=== PATIENT | female | born 1995 | race African-American/Black ===

== ENCOUNTER 2022-01-08 10:42 | Emergency (ER) | payer OTHER, SELFPAY ==
[2022-01-08 10:45] VITALS: BP 122/72; PULSE 88; RESP 15; TEMP 36.2; O2SAT 96; BMI 32.1
[2022-01-08 13:23] VITALS: BP 133/84; PULSE 91; O2SAT 99
[2022-01-08 13:30] VITALS: BP 129/88; PULSE 81; O2SAT 100
--- NOTE | 2022-01-08 13:31 | ED_ITS ---
HPI - Skin/Abscess/Foreign Bdy <ROX Mack - Last Filed: 01/08/22 14:37> General Chief complaint: Skin/Abscess/Foreign Body Stated complaint: Mass on rib, possible cyst Time Seen by Provider: 01/08/22 13:31 Source: patient Mode of arrival: Ambulatory Limitations: no limitations History of Present Illness HPI narrative: This is a 26-year-old female who presents to the emergency department from the [facility] for an abscess on her left buttock that she noticed 5 days ago. She states that she has had nausea, felt unwell, and had a headache but denies any known fever, vomiting, or diarrhea. She denies any history of abscesses in the past, states she thought it was a pimple at 1st, and it got big fast, now with warmth, redness and pain. She denies any history of abnormal dermatologic conditions. She denies any diabetes history. States her last tetanus was within the last 3 months. Related Data Previous Rx's Medication Instructions Recorded sulfamethoxazole 800 1 tab PO BID 5 Days #10 tab 01/08/22 mg-trimethoprim 160 mg tablet (Bactrim DS) Allergies Allergy/AdvReac Type Severity Reaction Status Date / Time No Known Drug Allergies Allergy Verified 01/08/22 10:45 Review of Systems <ROX Mack - Last Filed: 01/08/22 14:37> Review of Systems Narrative: General: denies fever, chills, malaise, sweats, fatigue Head/Neck: denies headache, neck pain, dizziness Eyes: denies visual changes, eye pain Cardio: denies chest pain, palpitations, edema Respiratory: denies dyspnea, cough, orthopnea GI: denies abdominal pain, nausea, vomiting, or diarrhea : denies dysuria, hematuria, urinary retention, frequency or incontinence MSK: denies joint pain, muscle weakness Skin: denies rash, itching, complains abscess on left buttock Neuro: denies numbness, tingling Patient History <ROX Mack - Last Filed: 01/08/22 14:37> Social History Smoking Status: Current every day smoker Smoking Status: Current every day smoker tobacco type: vaping alcohol intake frequency: holidays/special occasions only Substance Use Type: does not use Exam <ROX Mack - Last Filed: 01/08/22 14:37> Narrative Exam Narrative: Independently reviewed vitals signs and nursing notes. General: cooperative, comfortable, in no acute distress, well developed and well groomed Head: atraumatic, symmetrical facial expressions Eyes: pupils equal round and reactive, EOMI, conjunctiva normal Nose: nares patent, no rhinorrhea Mouth/Throat: uvula midline, moist mucus membranes Cardiovascular: regular rate and rhythm, no peripheral edema, warm extremities Respiratory: normal effort, able to speak in complete sentences, no audible wheezing, stridor, or rales. No retractions or tachypnea. MSK: moves all extremities, ambulatory w/steady gait, neurovascularly intact, no weakness Skin: brisk capillary refill, no rash, 2 cm abscess on left medial buttock with surrounding erythema, tenderness to palpation, + fluctuance Neuro: normal speech and cognition, A&O x3, normal tone Psych: mental status is grossly normal, congruent mood, normal affect, pleasant and cooperative Initial Vital Signs Initial Vital Signs: Vital Signs Temperature 97.1 F L 01/08/22 10:45 Pulse Rate 88 01/08/22 10:45 Respiratory Rate 15 01/08/22 10:45 Blood Pressure 122/72 01/08/22 10:45 Pulse Oximetry 96 01/08/22 10:45 <Autumn Guzman DO - Last Filed: 01/11/22 23:25> Initial Vital Signs Initial Vital Signs: Vital Signs Temperature 97.1 F L 01/08/22 10:45 Pulse Rate 88 01/08/22 10:45 Respiratory Rate 15 01/08/22 10:45 Blood Pressure 122/72 01/08/22 10:45 Pulse Oximetry 96 01/08/22 10:45 Procedures <ROX Mack - Last Filed: 01/08/22 14:37> Abscess I/D I&D #1: Site: other (Left buttock) Side (if applicable): left Sedation/analgesia: other (Toradol and Tylenol) Local Anesthetic: lidocaine 1% and with bicarb Amount of anesthesia used (mL): 2 Technique: incised with #11 blade Amount of fluid expressed (mL): 10 Irrigation: Yes Packing used?: none Complications: other (None) Course <ROX Mack - Last Filed: 01/08/22 14:37> Orders Ordered: Discontinued Medications Acetaminophen (Acetaminophen 325 Mg Tablet) 975 mg PO NOW ONE Stop: 01/08/22 13:37 Last Admin: 01/08/22 13:44 Dose: 975 mg Documented by: SHO Ketorolac Tromethamine (Ketorolac 30 Mg/Ml Vial) 15 mg IM NOW ONE Stop: 01/08/22 13:37 Last Admin: 01/08/22 13:44 Dose: 15 mg Documented by: SHO Lidocaine/Sodium Bicarbonate (Lido 1%/Sod Bicarb 8.4% (10ml) 10 Ml Syringe) 10 ml INJ NOW ONE Stop: 01/08/22 13:37 Last Admin: 01/08/22 13:44 Dose: 10 ml Documented by: SHO Ondansetron HCl (Ondansetron 4 Mg Odt) 4 mg SL NOW ONE Stop: 01/08/22 13:38 Last Admin: 01/08/22 13:44 Dose: 4 mg Documented by: SHO Vital Signs Vital signs: Vital Signs - 8 hr 01/08/22 10:45 01/08/22 13:23 01/08/22 13:30 Temperature 97.1 F L Pulse Rate 88 91 H 81 Respiratory Rate 15 Blood Pressure 122/72 133/84 129/88 Pulse Oximetry 96 99 100 01/08/22 14:00 Temperature Pulse Rate 96 H Respiratory Rate Blood Pressure 129/84 Pulse Oximetry 100 <Autumn Guzman DO - Last Filed: 01/11/22 23:25> Orders Ordered: Discontinued Medications Acetaminophen (Acetaminophen 325 Mg Tablet) 975 mg PO NOW ONE Stop: 01/08/22 13:37 Last Admin: 01/08/22 13:44 Dose: 975 mg Documented by: SHO Ketorolac Tromethamine (Ketorolac 30 Mg/Ml Vial) 15 mg IM NOW ONE Stop: 01/08/22 13:37 Last Admin: 01/08/22 13:44 Dose: 15 mg Documented by: SHO Lidocaine/Sodium Bicarbonate (Lido 1%/Sod Bicarb 8.4% (10ml) 10 Ml Syringe) 10 ml INJ NOW ONE Stop: 01/08/22 13:37 Last Admin: 01/08/22 13:44 Dose: 10 ml Documented by: SHO Ondansetron HCl (Ondansetron 4 Mg Odt) 4 mg SL NOW ONE Stop: 01/08/22 13:38 Last Admin: 01/08/22 13:44 Dose: 4 mg Documented by: SHO Vital Signs Vital signs: Vital Signs - 8 hr 01/08/22 10:45 01/08/22 13:23 01/08/22 13:30 Temperature 97.1 F L Pulse Rate 88 91 H 81 Respiratory Rate 15 Blood Pressure 122/72 133/84 129/88 Pulse Oximetry 96 99 100 01/08/22 14:00 Temperature Pulse Rate 96 H Respiratory Rate Blood Pressure 129/84 Pulse Oximetry 100 MDM - Skin/Abscess/Foreign Bdy <ROX Mack - Last Filed: 01/08/22 14:37> MDM Narrative Medical decision making narrative: This is a 26-year-old female, active who presents to the emergency department complaining of abscess on her buttock which she noticed 5 days ago. She states it started as a pimple, then became larger, now with redness, warmth, and more tenderness. This is incised and drained for approximately 10 mL purulence drainage, wound culture obtained. Recommended patient continue warm compresses, shower as usual, allow to drain. She was given a prescription for antibiotics if she develops any worsening redness, warmth, heat or if her wound starts to reaccumulate. No packing was used, cavity was only approximately 0.5 cm deep. Patient was given strict return precautions, instructed to return to the emergency department for fever, worsening pain, systemic illness, or any other concerns. Patient is appropriate and amenable to discharge home. Vital signs are stable on repeat examination is unremarkable. Patient has been informed of results. Patient has been given strict return to ER precautions for any new or worsening symptoms. Patient understands to follow up closely with outpatient providers as instructed. Patient understands plan and agrees to discharge home. All questions and concerns answered at this time. Discharge Plan Departure Patient Disposition: Home Clinical Impression: Abscess Instructions: DI for Skin Abscess Activity Restrictions/Additional Instructions: *You have been diagnosed with an abscess on your left buttock, this was drained, we will call you if your wound culture grows out something you should take the antibiotic for or if it needs a different antibiotic. [place] as needed for any worsening of this, there is always a chance again reaccumulate. Please take the or any worsening pain, worsening redness, no longer draining or feeling full or not improving. Thank you for trusting us with your care, I hope you feel better soon. Take Tylenol or ibuprofen as needed for pain, ice may be helpful for the next 3 days, allow to drain, change or Band-Aid twice a day, took a to take everything often let the shower run over it in the shower. *What to do: *Please continue to take your regular medications as directed. [x ] New medication prescriptions sent to your pharmacy: [ DOD] [ ] New medication written as a paper prescription [ ] No new medications given *Please follow up with your primary care provider in 2-3 days, call for an appointment. Let them know you were seen in the Emergency Department and that we asked that you be seen for follow-up. We will electronically transmit a record of today's note if your PCP is in our system *If you do not have a primary care provider please contact [phone] to establish care with one of the [facility] primary care providers. *Return to Emergency Department if you should have any new, worsening or concerning symptoms, such as [fever greater than 101F, chills, worsening pain, persistent vomiting or other bothersome symptoms] Prescriptions: New sulfamethoxazole-trimethoprim [Bactrim DS] 800-160 mg tablet 1 tab PO BID 5 Days Qty: 10 0RF <Autumn Guzman, - Last Filed: 01/11/22 23:25> [facility] Attending Oanh Attestation: I was immediately available in the department for consultation. Documentation has been reviewed.
[2022-01-08] MEDS: ACETAMINOPHEN 325 MG TABLET 975 MG PO (13:44)
[2022-01-08] MEDS: LIDO 1%/SOD BICARB 8.4% (10ML) 10 ML SYRINGE INJ (13:44)
[2022-01-08] MEDS: ONDANSETRON 4 MG ODT SL (13:44)
[2022-01-08] MEDS: KETOROLAC 30 MG/ML VIAL 15 MG IM (13:44)
[2022-01-08 14:00] VITALS: BP 129/84; PULSE 96; O2SAT 100
--- NOTE | 2022-01-08 14:27 | PC.NURSE ---
assessment done by provider.
== END 2022-01-08 14:28 | disposition home or self-care (01) ==
PROVIDERS: Emergency Provider Nurse Practitioner Critical Care Medicine
DX: L02.31 Cutaneous abscess of buttock (principal); R11.0 Nausea
CPT/HCPCS: 10060; 96372; 99283; J1885

== ENCOUNTER → 2022-05-27 12:50 | Outpatient (CLI) | payer OTHER, SELFPAY ==
--- NOTE | 2022-05-27 12:55 | DI.US.S_ITS ---
PROCEDURE: US OB <= 14 WEEKS FETUS INDICATIONS: DATING OUTSIDE/PRIOR DATING DATA: Last menstrual period (LMP): 03/24/2022. LMP-based estimated date of delivery (PUSHPA): 12/29/2022. First dating scan (date and location): 05/27/2022. Estimated date of delivery (PUSHPA) from first dating scan: 12/26/2022 The calculations are made using the LMP PUSHPA of 12/29/2022. TECHNIQUE: Real-time scanning was performed of the fetus and maternal pelvic organs, with image documentation. Endovaginal scanning was also performed to better visualize the fetus and maternal ovaries. COMPARISON: None. FINDINGS: Embryo: There is intrauterine with a yolk sac visualized. pole is seen with a heart rate of 168 beats per minute. Hughes-rump length is 2.8 cm correlating with 9 weeks 4 days. There is a perigestational bleed measuring 1.5 x 2.0 x 0.5 cm. Heart rate: 168 Maternal organs: Ovaries left corpus luteal cyst.. IMPRESSION: 1. Single live intrauterine . 2. Perigestational bleed measuring 1.5 x 2.0 x 0.5 cm. 3. Left ovary corpus luteal cyst. We strive to produce accurate, complete, and clear reports of imaging services. To assist us in improving patient care, this report was composed using standard report templates and voice recognition software. Therefore, it may contain abnormal punctuation, insertions and/or omissions. Occasional wrong-word or sound-alike substitutions may occur. Though we review the report and make efforts to correct it, we do recommend that the report be read carefully in proper context to recognize any text inaccuracies. Dictated by: Erwin Escobedo M.D. on 05/27/2022 at 14:11 Approved by: Erwin Escobedo M.D. on 05/27/2022 at 14:15
== END ==
PROVIDERS: Referring Provider Obstetrics & Gynecology; Visit Provider Obstetrics & Gynecology
DX: O34.81 Maternal care for other abnormalities of pelvic organs, first trimester (principal); N83.12 Corpus luteum cyst of left ovary; O20.9 Hemorrhage in early pregnancy, unspecified; Z3A.09 9 weeks gestation of pregnancy
CPT/HCPCS: 76801; 76817

== ENCOUNTER → 2022-06-05 12:31 | Outpatient (CLI) | payer OTHER, SELFPAY ==
[2022-06-05 13:02] LABS: Appearance Urine UA CLEAR; Bilirubin Urine UA NEGATIVE (NEGATIVE); Color Urine UA YELLOW; Glucose Urine UA NEGATIVE (Negative); Ketones Urine UA NEGATIVE (NEGATIVE); Leukocyte Esterase Urine UA NEGATIVE (NEGATIVE); Nitrite Urine UA NEGATIVE (Negative); Occult Blood Urine UA NEGATIVE (Negative); Protein Urine UA NEGATIVE (Negative); Specific Gravity Urine UA <=1.005 (1.000-1.035); Urobilinogen Urine UA 0.2 E.U./dL (0.2)
[2022-06-05 13:49] LABS: Add Manual Diff / Slide Review NO; Basophils Absolute Auto 0 /uL (0-100); Eosinophils Absolute Auto 100 /uL (0-450); Eosinophils Percent Auto 1.4 % (2-4); Hematocrit 36.5 % (36-46); Hemoglobin 12.4 g/dL (12.0-16.0); Lymphocytes Absolute Auto 2000 /uL (1100-4500); Lymphocytes Percent Auto 40.2 % (25-40); Mean Corpuscular Volume 91.3 fL (80-100); Monocytes Absolute Auto 500 /uL (0-900); Monocytes Percent Auto 10.2 % (3-14); Neutrophils Absolute Auto 2400 /uL (1500-7000); Neutrophils Percent Auto 47.2 % (50-75); Platelet Count 284 X10^3/uL (150-400); Red Blood Cell Count 3.99 X10^6/uL (4.0-5.2); Red Cell Distribution Width 12.7 % (11.6-14.8)
[2022-06-05 14:30] LABS: Urine N gonorrhoeae NOT DETECTED
[2022-06-05 15:45] LABS: Urine Chlamydia NOT DETECTED
[2022-06-06 07:37] LABS: RPR Screen Non Reactive (Non Reactive)
[2022-06-06 13:26] LABS: Varicella IgG Antibody 183 index (Immune >165)
[2022-06-07 15:45] LABS: Hepatitis B Surface Antigen NEGATIVE s/c (NEGATIVE); Rubella Antibody IgG 34.8 IU/mL (>15)
[2022-06-07 16:18] LABS: HIV 1 & 2 Ab/Ag 4th Gen Combo NEGATIVE (NEGATIVE); Hep C Virus Ab w/Reflex Quant NEGATIVE s/c (NEGATIVE)
== END ==
PROVIDERS: Referring Provider Obstetrics & Gynecology; Visit Provider Obstetrics & Gynecology
DX: Z34.81 Encounter for supervision of other normal pregnancy, first trimester (principal); Z3A.10 10 weeks gestation of pregnancy
CPT/HCPCS: 36415; 80055; 81003; 86787; 86803; 86850; 86900; 86901; 87086; 87389; 87491; 87591

== ENCOUNTER → 2022-08-20 07:47 | Outpatient (CLI) | payer OTHER, SELFPAY ==
--- NOTE | 2022-08-20 07:48 | DI.US.S_ITS ---
PROCEDURE: US OB >= 14 WEEKS FETUS INDICATIONS: 20 Week Anatomy Scan OUTSIDE/PRIOR DATING DATA: Last menstrual period (LMP): 03/24/2022. LMP-based estimated date of delivery (PUSHPA): 12/29/2022 First dating scan (date and location): 05/27/2022 Estimated date of delivery (PUSHPA) from first dating scan: 12/26/2022. TECHNIQUE: Real-time scanning was performed of the fetus, with image documentation and biometric measurements. Endovaginal scanning: Not performed COMPARISON: [facility], OB <= 14 WEEKS FETUS, 05/27/2022, 13:12. FINDINGS: General: A single living intrauterine gestation is present. Presentation: Vertex. Placenta: Placental position is posterior , without previa. Amniotic fluid index: 19.4 cm, normal range is 5-24 cm. Single deepest vertical pocket is 5.9 cm. heart rate: 135 beats per minute. Maternal cervical canal: 3.8 cm long. Normal lower limit is 2.5 cm. biometrics: Biparietal diameter: 5.2 centimeters, 21 weeks 5 days Head circumference: 19.2 centimeters, 21 weeks 3 days Abdominal circumference: 15.7 centimeters, 20 weeks 6 days Femur length: 4.1 centimeters, 23 weeks 1 day estimated gestational age: 21 weeks 2 days Composite gestational age from present scan: 21 weeks 6 days Estimated weight and percentile: 457 grams, 75th percentile Anatomic survey: Neuro: Ventricles are non-dilated at less than 10 mm. Cisterna magna is normal at 3-11 mm. Cerebellum is normal in size and morphology. Nuchal skin fold: Normal at less than 6 mm between 14-21 weeks gestational age. Face: Nose and lips, facial profile are normal. Spine: No evidence for spina bifida. Heart: 4-chambered heart is present, with normal ventricular outflow tracts. Diaphragm: Diaphragm is intact. Stomach: Left-sided stomach is present. Kidneys: No hydronephrosis. Normal is less than 5 mm in 2nd trimester, less than 7 mm in 3rd trimester. Cord: 3-vessel cord has orthotopic insertion. Bladder: Normal in size. Extremities: All 4 extremities identified. IMPRESSION: 1. Single living intrauterine . 2. Normal 2nd trimester anatomy survey. No anomalies detected at this time. We strive to produce accurate, complete, and clear reports of imaging services. To assist us in improving patient care, this report was composed using standard report templates and voice recognition software. Therefore, it may contain abnormal punctuation, insertions and/or omissions. Occasional wrong-word or sound-alike substitutions may occur. Though we review the report and make efforts to correct it, we do recommend that the report be read carefully in proper context to recognize any text inaccuracies. Dictated by: Atif Suarez M.D. on 08/20/2022 at 18:21 Approved by: Atif Suarez M.D. on 08/20/2022 at 18:36
== END ==
PROVIDERS: Referring Provider Obstetrics & Gynecology; Visit Provider Obstetrics & Gynecology
DX: Z34.82 Encounter for supervision of other normal pregnancy, second trimester (principal); Z3A.21 21 weeks gestation of pregnancy
CPT/HCPCS: 76811

== ENCOUNTER → 2022-08-28 10:39 | Outpatient (CLI) | payer OTHER, SELFPAY ==
[2022-08-30 19:22] LABS: AFP Value 74.3 ng/mL (.); Gest Age on Col Date 22.4 weeks (.); Insulin Dep Diabetes No (.); OSBR Risk 1IN 10000 (.); Results Report (.); Test Results *Screen Negative* (.)
== END ==
PROVIDERS: Referring Provider Obstetrics & Gynecology; Visit Provider Obstetrics & Gynecology
DX: Z34.02 Encounter for supervision of normal first pregnancy, second trimester (principal); Z3A.22 22 weeks gestation of pregnancy
CPT/HCPCS: 36415; 82105

== ENCOUNTER → 2022-09-05 12:50 | Outpatient (CLI) | payer OTHER, SELFPAY ==
[2022-09-05 15:04] LABS: GTT (PREG) 1 Hour PP 50gm Dose 101 mg/dL (76-139)
[2022-09-05 16:27] LABS: Urine N gonorrhoeae NOT DETECTED
[2022-09-05 16:29] LABS: Urine Chlamydia NOT DETECTED
== END ==
PROVIDERS: Referring Provider Obstetrics & Gynecology; Visit Provider Obstetrics & Gynecology
DX: Z34.02 Encounter for supervision of normal first pregnancy, second trimester (principal); Z3A.26 26 weeks gestation of pregnancy
CPT/HCPCS: 36415; 82950; 87491; 87591

== ENCOUNTER → 2022-10-24 11:36 | Outpatient (CLI) | payer OTHER, SELFPAY ==
[2022-10-24 12:35] LABS: Hematocrit 35.2 % (36-46)
== END ==
PROVIDERS: Referring Provider Obstetrics & Gynecology; Visit Provider Obstetrics & Gynecology
DX: Z34.82 Encounter for supervision of other normal pregnancy, second trimester (principal)
CPT/HCPCS: 36415; 85014; 85018

== ENCOUNTER 2022-11-13 11:40 | Observation (INO) | payer OTHER, SELFPAY ==
[2022-11-13 13:00] LABS: Appearance Urine UA CLEAR; Bilirubin Urine UA NEGATIVE (NEGATIVE); Color Urine UA YELLOW; Glucose Urine UA 1+ g/dL (Negative); Ketones Urine UA TRACE (NEGATIVE); Leukocyte Esterase Urine UA NEGATIVE (NEGATIVE); Nitrite Urine UA NEGATIVE (Negative); Occult Blood Urine UA NEGATIVE (Negative); Protein Urine UA NEGATIVE (Negative); pH Urine UA 7.5 (4.5-8.0)
[2022-11-13 13:14] LABS: RBC Urine None Seen (0-5/HPF); WBC Urine None Seen (0-5/HPF)
[2022-11-13 13:15] LABS: Bacteria Urine None Seen; Culture Indicated Urine Cult Not Indicated; Urine Comments Microscopic Normal
--- NOTE | 2022-11-13 13:34 | P.TNLD_ITS ---
Visit Information Visit Information Date of evaluation: 11/13/22 Primary OB Provider: Jasper Parada Reason for Evaluation: Yes other Comments/Additional reasons for admission: Nhan is a 27 yo G1 at 33+3 weeks EGA who presents with the onset of vaginal bleeding with light cramping earlier this morning. 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 ) current occupational exposures/hazards: No special nathalie needs: No travel history: recent (domestic only) seatbelt use: always water heater temp set < 120 deg: Yes working smoke detector in home: Yes fire extinguisher in home: Yes carbon monox detector in home: Yes firearms in home: No do you feel safe at home: No Smoking Status: Current every day smoker quit status: considering quitting second hand exposure: Yes alcohol intake: former (socially on weekends when not ) substance use type: does not use during the past year weight has: increased > 10 lbs well-balanced diet: daily or most days daily servings fruits/ve-4 caffeine: Yes Type(s) of exercise: walking, bicycling (stationary bike) and weight lifting frequency: 1-2 times per week Objective Labs Labs: Laboratory Results - last 24 hr 11/13/22 12:30 Urine Color Yellow Urine Appearance Clear Urine pH 7.5 Ur Specific [employer] 1.020 Urine Protein Negative Urine Glucose (UA) 1+ H Urine Ketones Trace H Urine Occult Blood Negative Urine Nitrate Negative Urine Bilirubin Negative Urine Urobilinogen 1.0 Ur Leukocyte Esterase Negative Urine RBC None seen Urine WBC None seen Urine Bacteria None seen Ur Culture Indicated? Cult not indicated Micro UA Comment Microscopic normal
== END 2022-11-13 13:30 | disposition home or self-care (01) ==
PROVIDERS: Admitting Provider Obstetrics & Gynecology; Referring Provider Obstetrics & Gynecology; Visit Provider Obstetrics & Gynecology
DX: O60.03 Preterm labor without delivery, third trimester (principal); O46.93 Antepartum hemorrhage, unspecified, third trimester; Z3A.33 33 weeks gestation of pregnancy
CPT/HCPCS: 59025; 81001; G0378; G0379

== ENCOUNTER → 2022-12-04 16:26 | Outpatient (CLI) | payer OTHER, SELFPAY ==
[2022-12-05 16:08] LABS: Strep Grp B PCR NEG for Grp B Strep
== END ==
PROVIDERS: Visit Provider Obstetrics & Gynecology
DX: Z34.03 Encounter for supervision of normal first pregnancy, third trimester (principal); Z3A.36 36 weeks gestation of pregnancy
CPT/HCPCS: 87653

== ENCOUNTER 2022-12-11 08:57 | Observation (INO) | payer OTHER, SELFPAY ==
--- NOTE | 2022-12-11 12:40 | P.TNLD_ITS ---
Visit Information Visit Information Date of evaluation: 12/11/22 Primary OB Provider: Jasper Parada On-call OB Provider: Mario Álvarez Reason for Evaluation: Yes rule out labor and Yes rupture of membranes Comments/Additional reasons for admission: 27-year-old 1 currently at 37+ 2 weeks' gestation presented to labor and delivery stating that her water broke earlier today Patient is ROM test was negative. She was monitored for several hours she had a very reactive NST but minimal contractions other than occasional Barron Hung PFSH Medical History (Updated 12/11/22 @ 12:50 by Mario Álvarez MD) Anxiety Depression Frequent headaches Surgical History (Updated 05/30/22 @ 08:10 by Emmy Guerin RN) [place] teeth extracted Social History marital status: unmarried,single number of children: 0 household members: none lives independently: Yes [facility]: [facility] or out in town) pets and animals: No education level: college (some college) 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, 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 ) current occupational exposures/hazards: No special nathalie needs: No travel history: recent (domestic only) seatbelt use: always water heater temp set < 120 deg: Yes working smoke detector in home: Yes fire extinguisher in home: Yes carbon monox detector in home: Yes firearms in home: No do you feel safe at home: No Smoking Status: Current every day smoker quit status: considering quitting second hand exposure: Yes alcohol intake: former (socially on weekends when not ) substance use type: does not use during the past year weight has: increased > 10 lbs well-balanced diet: daily or most days daily servings fruits/ve-4 caffeine: Yes Type(s) of exercise: walking, bicycling (stationary bike) and weight lifting frequency: 1-2 times per week Exam Narrative Exam Narrative: On admission patient was 1 cm 50% -1 and after 3 hours her cervix was still unchanged Const General: cooperative Nutritional Appearance: average body habitus Evaluation Evaluation Baseline heart rate: 156 Variability: Moderate (11-25) monitor accelerations: Present Monitor Decelerations: Absent Cervical dilation (cm): 1 Cervical effacement (%): 50 station: -1 Non-invasive Membranes Rupture Test: negative Diagnosis, Plan/Disposition Final Diagnosis (1) False labor after 37 completed weeks of gestation: Status: Acute Plan/Disposition Plan: Continue office follow-up OB Disposition: home
== END 2022-12-11 12:47 | disposition home or self-care (01) ==
PROVIDERS: Admitting Provider Obstetrics & Gynecology; Referring Provider Obstetrics & Gynecology; Visit Provider Obstetrics & Gynecology
DX: Z03.71 Encounter for suspected problem with amniotic cavity and membrane ruled out (principal); Z3A.37 37 weeks gestation of pregnancy
CPT/HCPCS: 59025; 84112; G0378; G0379

== ENCOUNTER 2022-12-13 12:29 | Inpatient (IN) | payer OTHER, SELFPAY ==
[2022-12-13] MEDS: MORPHINE 4 MG/ML INJ 5 MG IM (13:30)
[2022-12-13] MEDS: LACTATED RINGERS 1,000 ML 100 ML IV ×2 (18:30→20:29)
[2022-12-13 18:59] LABS: Add Manual Diff / Slide Review NO; Basophils Absolute Auto 0 /uL (0-100); Basophils Percent Auto 0.4 % (0-2); Eosinophils Absolute Auto 100 /uL (0-450); Eosinophils Percent Auto 0.9 % (2-4); Hematocrit 37.2 % (36-46); Hemoglobin 12.8 g/dL (12.0-16.0); Lymphocytes Absolute Auto 1600 /uL (1100-4500); Lymphocytes Percent Auto 21.7 % (25-40); Mean Corpuscular HGB Conc 34.5 % (30-36); Mean Corpuscular Hemoglobin 31.7 PG (26-34); Mean Corpuscular Volume 91.7 fL (80-100); Monocytes Absolute Auto 600 /uL (0-900); Monocytes Percent Auto 7.9 % (3-14); Neutrophils Absolute Auto 5100 /uL (1500-7000); Neutrophils Percent Auto 69.1 % (50-75); Platelet Count 285 X10^3/uL (150-400); Red Blood Cell Count 4.05 X10^6/uL (4.0-5.2); Red Cell Distribution Width 13.5 % (11.6-14.8); White Blood Cell Count 7.4 X10^3/uL (4.5-11.0)
[2022-12-13] MEDS: FENT 2MCG/ML BUPIV 0.125% EPI 200 MCG/100 ML PLAST..BAG 6 MCG EPIDURAL (19:20)
[2022-12-13] MEDS: ONDANSETRON 4 MG/2 ML INJ IV (20:29)
--- NOTE | 2022-12-13 21:02 | PM.OBHP.IH.1 ---
OB HPI Date/Time Date of admission: 12/13/22 Date Patient Seen: 12/13/22 Time Patient Seen: 17:00 History of Present Condition Chief complaint: Labor pains PUSHPA Calculator Estimated Delivery Date Method Current WG Current Estimate 12/29/22 LMP (Certain) 37w 5d Other Estimates 12/26/22 Ultrasound #1 38w 1d 01/03/23 Conception 37w 0d Estimated Gestational Age (weeks): 37+ 5 : 1 Para: 0 Narrative: Patient came to the hospital thinking she was in labor. After several hours of observation she made no progress but was 100% effaced and 3 cm dilated. Patient was still very irritable we gave her an injection of morphine when she woke up she was making progress and was admitted being 5 cm care: good care Dating criteria OB: LMP confirmed by 1st trimester US Ultrasounds: normal 1st trimester US and normal mid trimester US Preadmission Labs Last OB Lab Results: Blood Type A Positive 12/13/22 18:50 Antibody Screen Negative 12/13/22 18:50 Hematocrit 37.2 % (36-46) 12/13/22 18:50 Hemoglobin 12.8 g/dL (12.0-16.0) 12/13/22 18:50 Hepatitis B Surface Antigen Negative s/c (NEGATIVE) 06/05/22 12:37 Hepatitis C Antibody Negative s/c (NEGATIVE) 06/05/22 12:37 Rubella Antibody 34.8 IU/mL (>15) 06/05/22 12:37 Varicella-Zoster IgG Antibody 183 index (Immune >165) 06/05/22 12:37 Glucose 1 Hour 101 mg/dL (76-139) 09/05/22 13:00 Group B Streptococcus (PCR) Neg for grp b strep 12/04/22 16:26 Evaluation Evaluation Uterine Contraction Intensity: Moderate Status: Category l Dilation (cm): 5 Effacement (%): 100 station: -3 PFSH Medical History (Updated 12/11/22 @ 12:50 by Mario Álvarez MD) Anxiety Depression Frequent headaches Surgical History (Updated 05/30/22 @ 08:10 by Emmy Guerin RN) [place] teeth extracted Social History marital status: unmarried,single number of children: 0 household members: none lives independently: Yes housing: other ([employer] [place] housing or out in town) pets and animals: No education level: college (some college) 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, 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 ) current occupational exposures/hazards: No special nathalie needs: No travel history: recent (domestic only) seatbelt use: always water heater temp set < 120 deg: Yes working smoke detector in home: Yes fire extinguisher in home: Yes carbon monox detector in home: Yes firearms in home: No do you feel safe at home: No Smoking Status: Current every day smoker quit status: considering quitting second hand exposure: Yes alcohol intake: former (socially on weekends when not ) substance use type: does not use during the past year weight has: increased > 10 lbs well-balanced diet: daily or most days daily servings fruits/ve-4 caffeine: Yes Type(s) of exercise: walking, bicycling (stationary bike) and weight lifting frequency: 1-2 times per week Meds Home Medications and Allergies Home Medications Medication Instructions Recorded Confirmed Type prenat.vits,mc,umj-wwic-[id number] 1 tab PO DAILY #90 tabs 08/31/22 12/12/22 Rx double electric breast pump 1 ea topical .prn #1 ea 10/24/22 12/12/22 Rx paroxetine HCl 20 mg tablet 20 mg PO DAILY 12/12/22 12/12/22 History hydrocodone 5 mg-acetaminophen 325 1 tab PO Q8H PRN pain #10 tabs 12/13/22 Rx mg tablet Allergies Allergy/AdvReac Type Severity Reaction Status Date / Time No Known Drug Allergies Allergy Verified 12/10/22 10:34 OB Exam Vital signs Blood Pressure: 114/72 Pulse Rate: 78 HENMT Head: normal to inspection Eyes General: appearance normal, both eyes and all related structures Resp Effort & Inspection: normal respiratory effort Cardio Rate: regular rate Rhythm: regular rhythm Extremities Lower extremity: Yes normal to inspection GI Inspection: other (Term size with VERTex presentation) External Female Exam: Yes normal external appearance Presentation: vertex Estimated Weight (lbs): 7 Amniotic Fluid: no fluid Other: Bulging bag Objective Labs 12/13/22 18:50 Labs: Laboratory Results - last 24 hr 12/13/22 12/13/22 18:50 18:50 WBC 7.4 RBC 4.05 Hgb 12.8 Hct 37.2 MCV 91.7 MCH 31.7 MCHC 34.5 RDW 13.5 Plt Count 285 Neut % (Auto) 69.1 Lymph % (Auto) 21.7 L [place] % (Auto) 7.9 Eos % (Auto) 0.9 L Baso % (Auto) 0.4 Neut # (Auto) 5100 Lymph # (Auto) 1600 [place] # (Auto) 600 Eos # (Auto) 100 Baso # (Auto) 0 Blood Type A Positive Antibody Screen Negative Pain Control Pain control: epidural Pelvic Exam Dilation (cm): 5 Effacement (%): 100 station: -3 Amniotic membrane status: Bulging Contractions Contraction frequency: 5 Contraction pattern: Regular Contraction intensity: Moderate Status status: Category l
[2022-12-13 21:12] VITALS: BP 114/72; PULSE 78
[2022-12-14] MEDS: FENT 2MCG/ML BUPIV 0.125% EPI 200 MCG/100 ML PLAST..BAG 6 MCG EPIDURAL (00:47)
[2022-12-14] MEDS: LACTATED RINGERS 1,000 ML 100 ML IV (02:07)
--- NOTE | 2022-12-14 05:44 | PM.OBPRVD ---
Events: Other (Dr. Parada) Labor & Delivery Delivery date: 12/14/22 Cervical ripening method: none Induction method: none Delivery monitor: external FHT and external uterine Route of delivery: Episiotomy description: None L&D Laceration Description: None Quantitative Blood Loss: 50 Anesthesia Type: Epidural Narrative: Patient has presented having irregular contractions found to be 100% effaced no progress in several hour she was sedated with morphine, and woke up in active labor pattern and 5 cm, whereupon the patient was admitted and allowed to labor. Had excellent monitoring strips no augmentation was required got to complete and subsequently delivered with about a half a dozen pushes Baby 1: gender: Female Presentation: vertex Position: Left Occiput Anterior Placenta delivery description: Spontaneous Cord Vessel Description: 3 Vessels score (1 min): 9 score (5 min): 9 Plan for aftercare: Routine care
[2022-12-14] MEDS: ACETAMINOPHEN IV 1,000 MG/100 ML VIAL 400 MG IV (06:08)
[2022-12-14] MEDS: IBUPROFEN 600 MG TABLET PO ×3 (08:26→21:02)
[2022-12-14] MEDS: ACETAMINOPHEN 325 MG TABLET 650 MG PO ×2 (15:06→21:03)
[2022-12-14] MEDS: OXYCODONE IR 5 MG TABLET PO (17:34)
[2022-12-14] MEDS: LANOLIN OINT 7 GM 1 APPLIC TOP (21:08)
[2022-12-14 22:22] VITALS: BP 114/72; PULSE 78
[2022-12-14 22:44] VITALS: BP 114/72; PULSE 78; RESP 20; TEMP 36.6
[2022-12-15] MEDS: IBUPROFEN 600 MG TABLET PO (07:32)
[2022-12-15] MEDS: ACETAMINOPHEN 325 MG TABLET 650 MG PO (07:32)
[2022-12-15] MEDS: OXYCODONE IR 5 MG TABLET PO (07:33)
--- NOTE | 2022-12-15 13:55 | PM.OBDS.1 ---
Discharge Providers Provider Date of admission: 12/13/22 12:29 Discharge Date: 12/15/22 Primary care physician: Melissa DUFF Provider Consults: 12/13/22 18:22 Consult to Anesthesiology Urgent Comment: Consulting Provider: Anesthesiologist Reason for consultation: Epidural 12/15/22 07:25 Consult to Reading Coach Routine Comment: Discharge provider: Mario Álvarez MD Summary Hospital Course Date Patient Seen: 12/15/22 Time Patient Seen: 13:55 Diagnoses: Term delivered Hospital Course: Patient was admitted 2 days ago was in dulsitory labor for prolonged prodromal labor, Then developed active labor. She required some augmentation had a relatively short 2nd stage for primigravida. Minimal blood loss Peripartum Data Delivery Method: Natural Vaginal Episiotomy description: None [place] 1: Gender: Female Time Spent with Patient Time attestation: Total time spent providing and/or coordinating discharge services: Time spent: Less than 30 minutes Specific discharge activities: Patient will return in 6 weeks for a check Objective Labs 12/13/22 18:50 Exam Const General: cooperative, healthy appearing and comfortable HENMT Head: normal to inspection Ears: hearing grossly normal bilaterally Nose: external nose normal Face and sinus: normal facial exam Eyes General: appearance normal, both eyes and all related structures Neck Neck: normal visual inspection Resp Effort & Inspection: normal respiratory effort Psych Appearance: grossly normal Mental Status: mental status grossly normal Mood: congruent mood Discharge Plan Discharge Plan Patient Disposition: Home Discharge orders & Medications Prescriptions: New ibuprofen 600 mg Tablet 600 mg PO Q6HR PRN (Reason: Pain, Mild (1-3)) Qty: 30 1RF Purelan Cream 1 applic topical PRN PRN (Reason: Tenderness) Qty: 7 1RF Prenatabs Rx 29 mg iron- 1 mg Tablet 1 tab PO DAILY Qty: 30 2RF (DME) Double Electric Breast Pump See Rx Instructions .Route .MEDSUPPLY Qty: 1 0RF Rx Instructions: As directed Continued prenat.vits,mc,[id number] Tablet 1 tab PO DAILY Qty: 90 3RF paroxetine HCl 20 mg Tablet 20 mg PO DAILY Discontinued double electric breast pump 1 ea topical .prn Qty: 1 0RF Rx Instructions: With supplies hydrocodone-acetaminophen 5-325 mg tablet 1 tab PO Q8H PRN (Reason: pain) Qty: 10 0RF Medication counseling provided by Pharmacist: No Follow up/Referrals: ProviderMelissa [Primary Care Provider] - Jasper Parada MD [Physician] - 6 Weeks (Call office to schedule) Diet/Activity/Treatments Diet: Diet as Tolerated Skin/Wound/Dressing Care Report to your healthcare provider any signs of infection, such as:: chills, fever, increased pain, unusual drainage and unusual redness Visit Report/Discharge Packet Stand Alone Forms: Patient Portal/API, Stroke Signs & Symptoms Discharge Data Primary Care Provider: ProviderMelissa
== END 2022-12-15 15:35 | disposition home or self-care (01) | DRG 807 ==
PROVIDERS: Obstetrics & Gynecology; Admitting Provider Obstetrics & Gynecology; Referring Provider Obstetrics & Gynecology; Visit Provider Obstetrics & Gynecology
DX: O80 Encounter for full-term uncomplicated delivery (principal); Z37.0 Single live birth; Z3A.37 37 weeks gestation of pregnancy
CPT/HCPCS: 59050; 59400; 85025; 86850; 86900; 86901; G0379; J0131; J2270; J2405